=== PATIENT | female | born 1995 | race Caucasian/White ===

== ENCOUNTER 2019-10-17 11:57 | Outpatient (CLI) | payer OTHER, SELFPAY ==
[2019-10-19 20:45] LABS: Progesterone 25.9 ng/mL (***)
== END 2019-10-17 11:58 | disposition home or self-care (01) ==
PROVIDERS: Visit Provider Obstetrics & Gynecology
DX: Z87.59 Personal history of other complications of pregnancy, childbirth and the puerperium (principal)
CPT/HCPCS: 36415; 84144; 84702

== ENCOUNTER 2019-10-19 07:45 | Outpatient (CLI) | payer OTHER, SELFPAY | END 2019-10-19 07:46 | disposition home or self-care (01) | LOC: ANHLAB 07:48 | PROVIDERS: PCP Obstetrics & Gynecology; Visit Provider Obstetrics & Gynecology | DX: Z34.90 Encounter for supervision of normal pregnancy, unspecified, unspecified trimester (principal) | CPT/HCPCS: 36415; 84702 ==

== ENCOUNTER 2019-10-27 15:15 | Outpatient (CLI) | payer OTHER, SELFPAY ==
--- NOTE | ~2019-10-27 | US_ITS ---
EXAMINATION: US OB <= 14 weeks fetus DATE: 10/27/2019 15:56 INDICATION: Positive test. TECHNIQUE: Real-time transabdominal obstetric ultrasound. FINDINGS: No prior studies for comparison. The uterus measures 11.9 x 5.4 x 6.1 cm. There is an intrauterine gestational sac, with pole id entified. The crown rump length measures 0.99 cm, which correlates with a estimated gestational age of 7 weeks 2 days. heart tones are identified measuring 137. IMPRESSION: 1. SL IUP with an EGA of 7 weeks, 2 days (EDC by current ultrasound of 06/12/2020). Reviewed, dictated and finalized at location A. IMPRESSION: 1. SL IUP with an EGA of 7 weeks, 2 days (EDC by current ultrasound of ).
== END 2019-10-27 15:16 | disposition home or self-care (01) ==
PROVIDERS: PCP Internal Medicine; Visit Provider Obstetrics & Gynecology
DX: Z34.91 Encounter for supervision of normal pregnancy, unspecified, first trimester (principal); Z3A.01 Less than 8 weeks gestation of pregnancy
CPT/HCPCS: 76801

== ENCOUNTER 2020-05-27 19:29 | Outpatient (CLI) | payer OTHER, SELFPAY ==
[2020-05-27 20:00] VITALS: BP 136/81
--- NOTE | 2020-05-28 07:26 | PC.NURSE ---
pt arrive on unit c/o leaking of fluid, pt had sve performed in office earlier today
== END 2020-05-27 19:30 | disposition home or self-care (01) ==
LOC: ANHOBOP 20:10
PROVIDERS: PCP Internal Medicine; Visit Provider Obstetrics & Gynecology
DX: O26.851 Spotting complicating pregnancy, first trimester (principal); Z3A.00 Weeks of gestation of pregnancy not specified
CPT/HCPCS: 59025; 84112

== ENCOUNTER 2020-06-03 15:45 | Outpatient (RCR) | payer OTHER, SELFPAY ==
[2020-05-01 12:04] VITALS: BP 132/65; PULSE 95
[2020-05-23 11:05] VITALS: BP 120/60; PULSE 85
[2020-05-30 13:30] VITALS: BP 123/63; PULSE 97
--- NOTE | ~2020-06-03 | US_ITS ---
EXAMINATION: US OB limited w BPP DATE: 05/01/2020 11:30 INDICATION: Third trimester. TECHNIQUE: Real-time pelvic ultrasound was performed. COMPARISON: Ultrasound 10/27/2019 FINDINGS: There is a single living fetus in vertex presentation. The placenta is anterior. heart rate is 148 beats per minute (bpm). One of the kidneys demonstrates mild pelviectasis. The amniotic fluid in dex is 13.4 cm, which is normal. Biophysical profile performed by the technologist: breathing (30 sec sustained breathing in 30 minutes): 2 out of 2 movement (3 gross body movements in 30 minutes): 2 out of 2 tone (one episode of ptmeyum-ascxjmbwo-ajxqset limb movement): 2 out of 2 Amniotic fluid pocket (2 cm): 2 out of 2 Total score: 8 out of 8 IMPRESSION: 1. Single living fetus in vertex presentation. 2. Biophysical profile 8 out of 8. 3. Unilateral mild pelviectasis. kidney ultrasound is recommended. Reviewed, dictated and finalized at location A. SOFTWARE ARCHITECT
--- NOTE | ~2020-06-03 | US_ITS ---
EXAMINATION: US OB limited w BPP EXAM DATE: 05/23/2020 11:33 INDICATION: BPP and JESSEE . 3rd trimester. TECHNIQUE: Pelvic obstetrical transabdominal sonogram was performed by a technologist. There are mu ltiple grayscale and Doppler images available for interpretation. There are no earlier studies of th is gestation for comparison. FINDINGS: There is a single fetus identified in vertex presentation with a heart rate of 141 beats pe r minute. The placenta is located in the anterior position. There is no sonographic evidence of retr oplacental hemorrhage identified. The amniotic fluid index is 13.7 centimeters, which is normal. BIOPHYSICAL PROFILE (performed by the technologist) breathing (30 sec sustained breathing in 30 minutes): 2 out of 2 movement (3 gross body movements in 30 minutes): 2 out of 2 tone (one episode of salpsio-jjoksdmig-nrmyrje limb movement): 2 out of 2 Amniotic fluid pocket (2 cm): 2 out of 2 Total score: 8 out of 8 Incidental note made of mild right and mild to moderate left hydronephrosis. Could be phasic bu t consider ultrasound. IMPRESSION: 1. Single fetus with heart rate of 141 bpm. 2. Normal biophysical profile score of 8 out of 8. 3. Normal JESSEE 13.7 cm. 4. Bilateral hydronephrosis; recommend kidney ultrasound. Reviewed, dictated and finalized at location A. MAPPER
--- NOTE | ~2020-06-03 | US_ITS ---
EXAMINATION: US OB limited w BPP DATE: 05/30/2020 12:28 INDICATION: Assess amniotic fluid index and biophysical profile during third trimester of . TECHNIQUE: Real-time pelvic ultrasound was performed. The interpreting radiologist was not present fo r the study. COMPARISON: None. FINDINGS: There is a single living fetus in vertex presentation. The placenta is anterior fundal. heart rate is 157 beats per minute (bpm). Normal amniotic fluid index of 8.7 cm (5th%-95%: 7.3-23.9 cm at 3 8 weeks estimated gestational age) . Biophysical profile performed by the technologist: breathing (30 sec sustained breathing in 30 minutes): 2 out of 2 movement (3 gross body movements in 30 minutes): 2 out of 2 tone (one episode of kkhcjvm-chmbtusxq-ecrggfk limb movement): 2 out of 2 Amniotic fluid pocket (2 cm): 2 out of 2 Total score: 8 out of 8 IMPRESSION: 1. Single living fetus in vertex presentation with heart rate of 157 bpm. 2. Biophysical profile 8 out of 8. 3. Normal amniotic fluid index of 8.7 cm. Reviewed, dictated and finalized at location A. ER PRODUCTION MACHINE OPERATOR
--- NOTE | ~2020-06-03 | US_ITS ---
EXAMINATION: US OB limited w BPP EXAM DATE: 06/03/2020 17:45 INDICATION: BPP with JESSEE BPP 3rd trimester. TECHNIQUE: Pelvic obstetrical transabdominal sonogram was performed by a technologist. There are mu ltiple grayscale and Doppler images available for interpretation. Comparison is made to prior examina tion from 05/30/2020, 05/23/2020. FINDINGS: There is a single fetus identified in vertex presentation with a heart rate of 166 beats pe r minute. The placenta is located in the anterior position. There is no sonographic evidence of retr oplacental hemorrhage identified. The amniotic fluid index is 13.2 centimeters, which is normal. Incidental note made of right renal pelvis measuring 7.6 mm in AP dimension and the left measuring 7. 2 mm. There is mild left-sided caliectasis. Moderate hydronephrosis. BIOPHYSICAL PROFILE (performed by the technologist) breathing (30 sec sustained breathing in 30 minutes): 0 out of 2 movement (3 gross body movements in 30 minutes): 2 out of 2 tone (one episode of tshumhw-lmbmntnvp-nbsccly limb movement): 2 out of 2 Amniotic fluid pocket (2 cm): 2 out of 2 Total score: 6 out of 8 IMPRESSION: 1. Single fetus with heart rate of 166 bpm. 2. Abnormal BPS 6/8, breathing not observed. 3. Normal JESSEE 13.2 cm. 4. Incidental moderate bilateral hydronephrosis. Consider ultrasound. Reviewed, dictated and finalized at location A. CTOR OF ACQUISITIONS IMPRESSION: 1. Single fetus with heart rate of 166 bpm. 2. Abnormal BPS 6/8, breathing not observed. 3. Normal JESSEE 13.2 cm. 4. Incidental moderate bilateral hydronephrosis. Consider ultr asound.
[2020-06-03 18:10] VITALS: BP 123/75; PULSE 92
== END 2020-06-05 07:46 | disposition home or self-care (01) ==
LOC: ANHOBOP 15:45
PROVIDERS: PCP Internal Medicine; Visit Provider Obstetrics & Gynecology
DX: O26.03 Excessive weight gain in pregnancy, third trimester (principal); O40.3XX0 Polyhydramnios, third trimester, not applicable or unspecified; O28.3 Abnormal ultrasonic finding on antenatal screening of mother; Z3A.34 34 weeks gestation of pregnancy; Z3A.37 37 weeks gestation of pregnancy; Z3A.38 38 weeks gestation of pregnancy
CPT/HCPCS: 59025; 76815; 76819

== ENCOUNTER 2020-06-03 18:05 | Inpatient (IN) | payer OTHER, SELFPAY ==
[2020-06-03] VITALS (22 sets, daily range): BP systolic 90–148; BP diastolic 22–93; PULSE 88–130; TEMP 36.5–36.6; BMI 43.3
--- NOTE | 2020-06-03 18:42 | LDADM ---
This patient, Kaylee Callejas, was admitted to Labor/Delivery/Recovery 104 on 06/03/20 at 18:05. Plans for labor, pain management and were discussed with patient. Patient/family oriented to hospital policies and general routines including ID bracelet, bed and alarms, visiting hours, pain management, procedures, bathroom and other care routines, personal items, smoking policy, room service/diet and guest tray routines, security routines, and visiting hours. Patient/Family are encouraged to report perceived risks to care and to ask questions if they do not understand what they are told or what they should do. See OBIX for further documentation.
[2020-06-03 18:53] LABS: Basophils Percent Auto 0.3 % (0.2-1.2); Eosinophils Absolute Auto 0.1 K/mm3 (0-0.3); Eosinophils Percent Auto 0.9 % (0-4.4); Hematocrit 36.2 % (37.0-47.0); Hemoglobin 11.9 g/dL (12.0-15.0); Immature Granulocyte Absolute 0.07 K/mm3 (0.00-0.031); Immature Granulocyte Percent A 0.6 % (0-0.5); Lymphocytes Absolute Auto 2.89 K/mm3 (0.9-3.2); Lymphocytes Percent Auto 24.4 % (18.3-44.2); Mean Corpuscular HGB Conc 32.9 g/dl (32-36); Mean Corpuscular Hemoglobin 29.4 pg (26-34); Mean Corpuscular Volume 89.4 fl (80-100); Mean Platelet Volume 11.8 fl (7.4-10.4); Monocytes Absolute Auto 0.9 K/mm3 (0.1-0.6); Monocytes Percent Auto 7.8 % (2.6-8.5); Neutrophils Absolute Auto 7.8 K/mm3 (1.3-6.7); Platelet Count Result 247 k/mm3 (150-375); Red Blood Count 4.05 M/mm3 (4.2-5.4); Red Cell Distribution Width 15.4 % (11.5-14.5); White Blood Count 11.9 K/mm3 (4.5-10.0)
[2020-06-03] MEDS: DINOPROSTONE 10 MG VAG INSERT VAGINAL (18:55)
--- NOTE | 2020-06-03 19:34 | WPDANESEPP ---
Anes - Eval Pre Procedure Procedure: Labor epidural Date/Time: 06/03/20 19:34 Surgeon: estelita Preop Diagnosis: Abdominal pain with contractions Pre Op Diagnosis: IOL Patient Data Age: 25 Gender: F Height: 5 ft 2 in Weight: 107.5 kg Last Vital Signs Temp 97.7 F 06/03/20 19:00 Pulse 95 06/03/20 19:31 BP 146/86 H 06/03/20 19:31 Allergies Allergy/AdvReac Type Severity Reaction Status Date / Time Sulfa (Sulfonamide Allergy Unknown Unknown Verified 06/03/20 15:02 Antibiotics) Home Medications Medication Instructions Recorded Confirmed Type vits 75-iron 28 mg-folic pkg PO 10/17/19 05/27/20 History acid 800 mcg-omega-3 oral combo pack cholecalciferol (vitamin D3) 50 mcg PO DAILY 05/17/20 05/27/20 History [Vitamin D3] Laboratory Tests 06/03/20 06/03/20 06/03/20 18:48 18:48 18:48 WBC 11.9 K/mm3 H K/mm3 (4.5-10.0) RBC 4.05 M/mm3 L M/mm3 (4.2-5.4) Hgb 11.9 g/dL L g/dL (12.0-15.0) Hct 36.2 % L % (37.0-47.0) MCV 89.4 fl fl (80-100) MCH 29.4 pg pg (26-34) MCHC 32.9 g/dl g/dl (32-36) RDW 15.4 % H % (11.5-14.5) Plt Count 247 k/mm3 k/mm3 (150-375) MPV 11.8 fl H fl (7.4-10.4) Immature Gran % (Auto) 0.6 % H % (0-0.5) Neut % (Auto) 66.0 % % (45.5-73.1) Lymph % (Auto) 24.4 % % (18.3-44.2) [place] % (Auto) 7.8 % % (2.6-8.5) Eos % (Auto) 0.9 % % (0-4.4) Baso % (Auto) 0.3 % % (0.2-1.2) Lymph # (Auto) 2.89 K/mm3 K/mm3 (0.9-3.2) [place] # (Auto) 0.9 K/mm3 H K/mm3 (0.1-0.6) Eos # (Auto) 0.1 K/mm3 K/mm3 (0-0.3) Baso # (Auto) 0.0 K/mm3 K/mm3 (0.0-0.1) Abs Immat Gran (auto) 0.07 K/mm3 H K/mm3 (0.00-0.031) Absolute Neuts (auto) 7.8 K/mm3 H K/mm3 (1.3-6.7) Absolute Nucleated RBC 0.0 K/mm3 K/mm3 (0.0-0.012) Nucleated RBC % 0.0 % % (0.0-0.2) RPR Pending Blood Type Pending Antibody Screen Pending Patient hx anesthesia problems: none Family hx anesthesia problems: none PMFSH Past Medical History Medical History Obesity affecting in third trimester and not yet delivered Surgical History Surgical History [place] teeth removed Family History Family History Father Diabetes mellitus Cerebrovascular accident Family history of obesity Family history of mental disorder Depression Hypertension Family history of arthritis Family history of congestive heart failure Sibling Family history of mental disorder Depression Hypertension Mother Patient's mother is Other Family history of malignant neoplasm of breast Social History Social History Smoking status: Never smoker Second hand tobacco smoke exposure: No Alcohol intake: current Substance use: never Gender identity (if verbalized by the patient): Female Spiritual care concerns: No Exam Day of Procedure 06/03/20 19:34 Patient weight: overweight Airway: Mallampati scale class 1 Neurological: alert and oriented
[2020-06-04] VITALS (298 sets, daily range): BP systolic 71–154; BP diastolic 31–103; PULSE 65–163; RESP 15–16; TEMP 36.1–37.8; O2SAT 90–100
[2020-06-04] MEDS: fentaNYL CITRATE INJ (*CRX) 100 MCG/2 ML VIAL 50 MCG IV PUSH (00:45)
[2020-06-04] MEDS: fentaNYL CITRATE INJ (*CRX) 100 MCG/2 ML VIAL IV PUSH (01:45)
[2020-06-04] MEDS: LACTATED RINGERS 1,000 ML 125 ML IV CONT ×3 (02:06→05:39)
[2020-06-04] MEDS: TERBUTALINE SULFATE 1 MG/ML VIAL 0.25 MG SUB-Q (04:40)
--- NOTE | 2020-06-04 09:12 | PM.IMHP ---
H&P: HPI History of Present Illness Date/Time: 06/04/20 09:12 Chief Complaint: Nonreassuring tracing. Narrative: Kaylee Callejas is a 25 year old female Patient at 38 5/7 on 06/03/20 by 7 week 2d ultrasound not consistent with LMP. Admitted for [facility] for nonreassuring testing. She had her OB visit and was sent down for testing due to history of polyhydramnios and increased BMI. NST reactive and BPP 6/8 for breathing. She had some variables initially and then after returning from ultrasound had increased frequency of mild variables. She was recommended for induction. PNC significant for pyelectasis. She had polyhydramnios mild which did resolve. She was measuring size larger than dates but ultrasound showed normal EFW. Labs reviewed. She had one hour GTT 141 and three hour was normal. GBS neg. Review of Systems Review of Systems: All systems reviewed & are unremarkable except as noted in HPI and below Constitutional: Constitutional: Reports no additional constitutional complaints and Denies headache(s) Eyes: Eyes: Denies spots in vision ENT: Reports system reviewed and no additional complaints, except as documented and Denies headache(s) Cardiovascular: Cardiovascular: Denies chest pain and Denies dyspnea Respiratory: Respiratory: Denies dyspnea Gastrointestinal: Gastrointestinal: Reports no additional gastrointestinal complaints Genitourinary: Genitourinary: Reports amenorrhea Musculoskeletal: Musculoskeletal: Reports no additional musculoskeletal complaints Integumentary/Breasts: Skin/Breast: Denies breast mass and Denies rash Neurologic: Denies headache(s) Psychiatric: Psychiatric: Reports no additional psychiatric complaints COUNTS INCLUDE 234 BEDS AT THE [facility] Past Medical History Medical History Obesity affecting in third trimester and not yet delivered Surgical History Surgical History [place] teeth removed Family History Family History Father Diabetes mellitus Cerebrovascular accident Family history of obesity Family history of mental disorder Depression Hypertension Family history of arthritis Family history of congestive heart failure Sibling Family history of mental disorder Depression Hypertension Mother Patient's mother is Other Family history of malignant neoplasm of breast Social History Social History Smoking status: Never smoker Second hand tobacco smoke exposure: No Alcohol intake: current Substance use: never Gender identity (if verbalized by the patient): Female Spiritual care concerns: No Meds Home Medications and Allergies Home Medications Medication Instructions Recorded Confirmed Type vits 75-iron 28 mg-folic pkg PO 10/17/19 05/27/20 History acid 800 mcg-omega-3 oral combo pack cholecalciferol (vitamin D3) 50 mcg PO DAILY 05/17/20 05/27/20 History [Vitamin D3] Allergies Allergy/AdvReac Type Severity Reaction Status Date / Time Sulfa (Sulfonamide Allergy Unknown Unknown Verified 06/03/20 15:02 Antibiotics) Vital Signs Vital Signs - 24 hr 06/03/20 18:32 06/03/20 18:46 06/03/20 19:00 Temperature 97.7 F Pulse Rate 97 91 Blood Pressure 134/93 H 134/77 Pulse Oximetry 06/03/20 19:01 06/03/20 19:16 06/03/20 19:31 Temperature Pulse Rate 95 95 95 Blood Pressure 138/85 145/86 H 146/86 H Pulse Oximetry 06/03/20 19:46 06/03/20 20:01 06/03/20 20:16 Temperature Pulse Rate 89 90 88 Blood Pressure 148/85 H 144/81 H 140/68 Pulse Oximetry 06/03/20 20:31 06/03/20 20:46 06/03/20 21:11 Temperature Pulse Rate 93 99 101 H Blood Pressure 129/75 129/73 118/66 Pulse Oximetry 06/03/20 21:15 06/03/20 21:31 06/03/20 21:46 [place]
[2020-06-04] MEDS: DEXTROSE 5%/LACTATED RINGERS 1,000 ML 999 ML IV CONT (09:24)
[2020-06-04] MEDS: OXYTOCIN 30 UNITS/NS 500 ML 30 UNITS/500 ML BAG IV CONT (10:20)
--- NOTE | 2020-06-04 12:48 | PM.OBPNVD ---
OB - PN: Subj Subjective Date/time seen: 06/04/20 Called at 0220, patient with frequent contractions, request epidural. FHT 155, occasional variables, episodes of tachycardia. OB - PN: Obj Data Labs CBC & Chem 7: 06/03/20 18:48 Labs: Laboratory Results - last 24 hr 06/03/20 06/03/20 18:48 18:48 WBC 11.9 H RBC 4.05 L Hgb 11.9 L Hct 36.2 L MCV 89.4 MCH 29.4 MCHC 32.9 RDW 15.4 H Plt Count 247 MPV 11.8 H Immature Gran % (Auto) 0.6 H Neut % (Auto) 66.0 Lymph % (Auto) 24.4 [place] % (Auto) 7.8 Eos % (Auto) 0.9 Baso % (Auto) 0.3 Lymph # (Auto) 2.89 [place] # (Auto) 0.9 H Eos # (Auto) 0.1 Baso # (Auto) 0.0 Abs Immat Gran (auto) 0.07 H Absolute Neuts (auto) 7.8 H Absolute Nucleated RBC 0.0 Nucleated RBC % 0.0 Blood Type A Positive Antibody Screen Negative OB - PN A/P Time Spent With Patient Time: Total time spent is greater than 50% in coordination of care (as documented) at patient's floor/unit and/or counseling patient:
--- NOTE | 2020-06-04 12:56 | P.PNOB_ITS ---
OB - PN: Subj Subjective Date/time seen: 06/04/20 0420' Called due to tachysystole. The cervidil had been removed. Tracing with episode of lates with tachystole and and deceleration associated with episodic tachyst ole, tracing then with decreased variabilty and late decels. She was instructed to give terbutaline. Tracing improved. Cat 2. FHT 155 baseline.Tachysystole resolved, ctn frequent. Will continue to monitor. OB - PN: Obj Data Labs CBC & Chem 7: 06/03/20 18:48 Labs: Laboratory Results - last 24 hr 06/03/20 06/03/20 18:48 18:48 WBC 11.9 H RBC 4.05 L Hgb 11.9 L Hct 36.2 L MCV 89.4 MCH 29.4 MCHC 32.9 RDW 15.4 H Plt Count 247 MPV 11.8 H Immature Gran % (Auto) 0.6 H Neut % (Auto) 66.0 Lymph % (Auto) 24.4 [place] % (Auto) 7.8 Eos % (Auto) 0.9 Baso % (Auto) 0.3 Lymph # (Auto) 2.89 [place] # (Auto) 0.9 H Eos # (Auto) 0.1 Baso # (Auto) 0.0 Abs Immat Gran (auto) 0.07 H Absolute Neuts (auto) 7.8 H Absolute Nucleated RBC 0.0 Nucleated RBC % 0.0 Blood Type A Positive Antibody Screen Negative OB - PN A/P Time Spent With Patient Time: Total time spent is greater than 50% in coordination of care (as documented) at patient's floor/unit and/or counseling patient:
--- NOTE | 2020-06-04 13:05 | PM.OBPNVD ---
OB - PN: Subj Subjective Date/time seen: 06/04/20 0500 Called to check on patient. Tracing reviewed cat 1, baseline normal. Plan to AROM in a few hours. OB - PN: Obj Data Labs CBC & Chem 7: 06/03/20 18:48 Labs: Laboratory Results - last 24 hr 06/03/20 06/03/20 18:48 18:48 WBC 11.9 H RBC 4.05 L Hgb 11.9 L Hct 36.2 L MCV 89.4 MCH 29.4 MCHC 32.9 RDW 15.4 H Plt Count 247 MPV 11.8 H Immature Gran % (Auto) 0.6 H Neut % (Auto) 66.0 Lymph % (Auto) 24.4 [place] % (Auto) 7.8 Eos % (Auto) 0.9 Baso % (Auto) 0.3 Lymph # (Auto) 2.89 [place] # (Auto) 0.9 H Eos # (Auto) 0.1 Baso # (Auto) 0.0 Abs Immat Gran (auto) 0.07 H Absolute Neuts (auto) 7.8 H Absolute Nucleated RBC 0.0 Nucleated RBC % 0.0 Blood Type A Positive Antibody Screen Negative OB - PN A/P Time Spent With Patient Time: Total time spent is greater than 50% in coordination of care (as documented) at patient's floor/unit and/or counseling patient:
--- NOTE | 2020-06-04 13:09 | P.PNOB_ITS ---
OB - PN: Subj Subjective Date/time seen: 06/04/20 0815 Tracing reviewed, freq ctx, Cat 1 5-7, then Cat 2 with periods of decrease variability, no decels. Cervix 5-6/50/-3 AROM large amount fluid. Will have change IVF to D5. Will add Pitocin if needed. OB - PN: Obj Data Labs CBC & Chem 7: 06/03/20 18:48 Labs: Laboratory Results - last 24 hr 06/03/20 06/03/20 18:48 18:48 WBC 11.9 H RBC 4.05 L Hgb 11.9 L Hct 36.2 L MCV 89.4 MCH 29.4 MCHC 32.9 RDW 15.4 H Plt Count 247 MPV 11.8 H Immature Gran % (Auto) 0.6 H Neut % (Auto) 66.0 Lymph % (Auto) 24.4 [place] % (Auto) 7.8 Eos % (Auto) 0.9 Baso % (Auto) 0.3 Lymph # (Auto) 2.89 [place] # (Auto) 0.9 H Eos # (Auto) 0.1 Baso # (Auto) 0.0 Abs Immat Gran (auto) 0.07 H Absolute Neuts (auto) 7.8 H Absolute Nucleated RBC 0.0 Nucleated RBC % 0.0 Blood Type A Positive Antibody Screen Negative OB - PN A/P Time Spent With Patient Time: Total time spent is greater than 50% in coordination of care (as do cumented) at patient's floor/unit and/or counseling patient:
--- NOTE | 2020-06-04 15:33 | P.PNOB_ITS ---
OB - PN: Subj Subjective Date/time seen: 06/04/20 15:33 FHT 160, cat 2, periods of decrease variability, contraction inadequate, continue pitocin. Temp 100.1. Cervix exam changing based L and D nurse exam. OB - PN: Obj Data Labs CBC & Chem 7: 06/03/20 18:48 Labs: Laboratory Results - last 24 hr 06/03/20 06/03/20 18:48 18:48 WBC 11.9 H RBC 4.05 L Hgb 11.9 L Hct 36.2 L MCV 89.4 MCH 29.4 MCHC 32.9 RDW 15.4 H Plt Count 247 MPV 11.8 H Immature Gran % (Auto) 0.6 H Neut % (Auto) 66.0 Lymph % (Auto) 24.4 [place] % (Auto) 7.8 Eos % (Auto) 0.9 Baso % (Auto) 0.3 Lymph # (Auto) 2.89 [place] # (Auto) 0.9 H Eos # (Auto) 0.1 Baso # (Auto) 0.0 Abs Immat Gran (auto) 0.07 H Absolute Neuts (auto) 7.8 H Absolute Nucleated RBC 0.0 Nucleated RBC % 0.0 Blood Type A Positive Antibody Screen Negative OB - PN A/P Time Spent With Patient Time: Total time spent is greater than 50% in coordination of care (as documented) at patient's floor/unit and/or counseling patient:
[2020-06-04] MEDS: DEXTROSE 5%/LACTATED RINGERS 1,000 ML 125 ML IV CONT (15:35)
--- NOTE | 2020-06-04 15:55 | PM.OBPNVD ---
OB - PN: Subj Subjective Date/time seen: 06/04/20 15:55 FHT 170, min variability, cervix 6/90/-3. caput present. Cat 2. t- 100.1 Patient was informed that she has not had any descent. Discussed risk of persisting with attempting vaginal delivery and discussed risk of cesearean section. Her questions were answered, she agrees to primary cesearean section for failure to progress and nonreassuring tracing. OB - PN: Obj Data Labs CBC & Chem 7: 06/03/20 18:48 Labs: Laboratory Results - last 24 hr 06/03/20 06/03/20 18:48 18:48 WBC 11.9 H RBC 4.05 L Hgb 11.9 L Hct 36.2 L MCV 89.4 MCH 29.4 MCHC 32.9 RDW 15.4 H Plt Count 247 MPV 11.8 H Immature Gran % (Auto) 0.6 H Neut % (Auto) 66.0 Lymph % (Auto) 24.4 [place] % (Auto) 7.8 Eos % (Auto) 0.9 Baso % (Auto) 0.3 Lymph # (Auto) 2.89 [place] # (Auto) 0.9 H Eos # (Auto) 0.1 Baso # (Auto) 0.0 Abs Immat Gran (auto) 0.07 H Absolute Neuts (auto) 7.8 H Absolute Nucleated RBC 0.0 Nucleated RBC % 0.0 Blood Type A Positive Antibody Screen Negative OB - PN A/P Time Spent With Patient Time: Total time spent is greater than 50% in coordination of care (as documented) at patient's floor/unit and/or counseling patient:
--- NOTE | 2020-06-04 16:01 | WPDANESEFPP ---
Anes - Eval Final PreProcedure Day of Procedure 06/04/20 16:01 Patient weight: morbidly obese Heart: regular rate and rhythm Lungs: clear to auscultation and normal air movement Airway: Mallampati scale class III Neurological: alert and oriented Last oral intake: >/= 8 hours ASA classification: III Emergent: no Anesthetic plan: proceed Anesthesia type and monitoring: regional epidural and standard monitoring Informed Consent: The patient's anesthetic plan and its attendant risks and benefits were discussed with the patient/family/POA. Questions were solicited and answers provided to the satisfaction of the patient/family/POA.
[2020-06-04] MEDS: ceFAZolin 2 GM/D5W 50 ML 2 GM/50 ML BAG IVPB (16:10)
--- NOTE | 2020-06-04 17:30 | PM.PROC ---
Procedure Note - Detailed Date of procedure: 06/04/20 Pre-op diagnosis: IOL 1. Failure to descend Post-op diagnosis: same Procedure performed: Primary low transverse cesearean section Description of procedure: After informed consent was obtained patient was taken to the operating room and her epidural was dosed for adequate analgesia. She was placed in supine position and prepped and draped in sterile fashion. heart tones were auscultated prior to a draping and were 160s. Attention was turned to the abdomen and a Pfannenstiel skin incision was made. The subcutaneous tissue was dissected with scalpel. The fascia was incised in the midline extended bilaterally with Childress scissors. The fascia was from rectus muscle superiorly and inferiorly bluntly and sharply. The midline was identified and grasped with clamps and incised. The peritoneum was entered. the midline was entered with metzenbaum scissors. The pelvic organs were visualized. The lower uterine segment and vesico-uterine peritoneum was visualized. A bladder flap was made. A low-transverse uterine incision was made. The amniotic cavity was entered. A large amount of clear fluid was noted. The incision was extended bluntly and the head and the rest the was delivered. The cord was doubly clamped and cut and the infant was handed to nursery staff and meteorological engineer in attendance. Cord segment was obtained for cord gases. Cord blood was obtained. The placenta was removed manually. The uterine cavity was sponge curetted. The uterus was noted to have good tone. The uterus was exteriorized the incision of the uterus was closed in a running locking fashion with 0 Vicryl. Several figure of eight stitches were used along the incision. Hemostasis was noted. An umbricating stitch of 0 Vicryl. Hemostasis was noted. The posterior cul-de-sac was irrigated. Uterus was placed back into the abdomen. The paracolic gutters were irrigated the uterine incision was inspected again and noted to be hemostatic. Interceed adhesion barrier was placed at the lower uterine segment and anterior uterus. The fascia was closed in a running fashion with 0 Vicryl. Hemostasis was noted. 3.0 Vicryl stitch was used interrupted to approximate the subcutaneous tissue. The skin incision was closed with 4 O Vicryl on a Keif needle. Dermabond was placed. Hemostasis was noted. The QBL was 690cc. Sponge count was correct x3. The patient tolerated procedure well and was taken to recovery in stable condition. Anesthesia: epidural Surgeon: Dickson Doll MD Estimated blood loss (mL): 690 Drains: No Packing: No Pathology: none sent Complications: No immediate complications Condition: stable Disposition: PACU Findings: Male infant apgars 3,8. Normal uterus, fallopian tubes and ovaries.
[2020-06-04] MEDS: KETOROLAC 30 MG/ML VIAL (*BKC) IV PUSH (19:00)
[2020-06-05] MEDS: KETOROLAC 30 MG/ML VIAL (*BKC) IV PUSH (00:35)
[2020-06-05 04:10] VITALS: BP 115/78; PULSE 81; RESP 16; TEMP 36.1; O2SAT 99
[2020-06-05 04:27] VITALS: PULSE 81; RESP 16; O2SAT 99
[2020-06-05] MEDS: IBUPROFEN 600 MG TABLET PO ×3 (05:22→18:36)
[2020-06-05] MEDS: HYDROcodone/acetaminophen (*CRX) 10-325 MG TABLET 1 TAB PO ×4 (05:22→15:24)
[2020-06-05 05:53] LABS: Basophils Absolute Auto 0.1 K/mm3 (0.0-0.1); Basophils Percent Auto 0.3 % (0.2-1.2); Eosinophils Absolute Auto 0.1 K/mm3 (0-0.3); Eosinophils Percent Auto 0.3 % (0-4.4); Hematocrit 30.2 % (37.0-47.0); Hemoglobin 9.8 g/dL (12.0-15.0); Immature Granulocyte Absolute 0.09 K/mm3 (0.00-0.031); Immature Granulocyte Percent A 0.6 % (0-0.5); Lymphocytes Absolute Auto 1.91 K/mm3 (0.9-3.2); Lymphocytes Percent Auto 12.6 % (18.3-44.2); Mean Corpuscular HGB Conc 32.5 g/dl (32-36); Mean Corpuscular Hemoglobin 29.6 pg (26-34); Mean Corpuscular Volume 91.2 fl (80-100); Mean Platelet Volume 12.8 fl (7.4-10.4); Monocytes Absolute Auto 0.8 K/mm3 (0.1-0.6); Monocytes Percent Auto 5.2 % (2.6-8.5); Neutrophils Absolute Auto 12.3 K/mm3 (1.3-6.7); Platelet Count Result 168 k/mm3 (150-375); Red Blood Count 3.31 M/mm3 (4.2-5.4); Red Cell Distribution Width 15.7 % (11.5-14.5); White Blood Count 15.2 K/mm3 (4.5-10.0)
[2020-06-05 07:04] LABS: Rapid Plasma Reagin Non-Reactive (NonReactive)
--- NOTE | 2020-06-05 07:35 | WPDANLDPN2 ---
Anes-Prog Note L&D Date/Time: 06/05/20 07:35 Comfortable throughout: section Neuraxial method: epidural Epidural/Spinal procedure site: clean & non-tender Neuro status: Neuro function grossly intact. Cardiovascular status: normal Respiratory status: normal Airway patency: baseline Mental status: baseline Post-Op hydration status: normal Vital Signs: Last Vital Signs Temp 36.1 C L 06/05/20 04:10 Pulse 81 06/05/20 04:27 Resp 16 06/05/20 04:27 BP 115/78 06/05/20 04:10 Pulse Ox 99 06/05/20 04:27 Pain score (VAS): 3/10 I/O: Intake & Output 06/04/20 06/04/20 06/05/20 15:59 23:59 07:59 Intake Total 1000 1230 1000 Output Total 1608 1800 Balance 1000 -378 -800 Post-procedural complaints: none Patient feedback: Patient satisfied with anesthetic care.
--- NOTE | 2020-06-05 07:37 | WPDANLDNPN2 ---
Anes-Prog Note L&D-Neuraxial Date/Time: 06/05/20 07:37 Neuraxial medications: epidural PF morphine Opiod-related complaints: none Patient feedback: Patient satisfied with post-operative pain management.
[2020-06-05 07:50] VITALS: BP 130/86; PULSE 91; RESP 18; TEMP 36.9; O2SAT 97
[2020-06-05] MEDS: POLYSACCHARIDE IRON COMPLEX 150 MG CAPSULE PO ×2 (09:02→17:42)
[2020-06-05] MEDS: DOCUSATE SODIUM 100 MG CAPSULE PO ×2 (09:02→17:42)
--- NOTE | 2020-06-05 11:43 | PC.NURSE ---
Mother using breast pump while is in level 2 nursery care. Instructions given on breast pump care and usage, pumping schedule, nipple care, and collection and storage of breast milk. Encouraged [id number] when is able, breast massage and manual expression to stimulate supply. Encouraged mom to pump every 3 hours to encourage her supply. Patient will call next pump sessionto be assessed for correct flange size, placement and draw. Patient verbalizes and demonstrates understanding of instructions.
[2020-06-05] MEDS: HYDROcodone/acetaminophen (*CRX) 10-325 MG TABLET 1 TAB (12:12)
[2020-06-05 13:35] VITALS: BP 140/85; PULSE 105; RESP 18; TEMP 36.7; O2SAT 97
[2020-06-05] MEDS: HYDROcodone/acetaminophen (*CRX) 5-325 MG TABLET 1 TAB PO ×2 (18:35→21:10)
[2020-06-05 18:41] VITALS: BP 143/80; PULSE 103; RESP 18; TEMP 36.7; O2SAT 100
[2020-06-06] MEDS: IBUPROFEN 600 MG TABLET PO ×3 (00:05→16:43)
[2020-06-06] MEDS: HYDROcodone/acetaminophen (*CRX) 5-325 MG TABLET 1 TAB PO ×5 (00:05→16:42)
[2020-06-06] MEDS: DOCUSATE SODIUM 100 MG CAPSULE PO ×2 (08:18→16:41)
[2020-06-06] MEDS: MULTIVIT/MIN/PREN/FOL AC/IRON TABLET 1 TAB PO (08:18)
[2020-06-06] MEDS: POLYSACCHARIDE IRON COMPLEX 150 MG CAPSULE PO ×2 (08:19→16:42)
[2020-06-06 08:20] VITALS: BP 138/92; PULSE 91; RESP 18; TEMP 36.9; O2SAT 100
[2020-06-06 08:30] VITALS: PULSE 96; RESP 18; O2SAT 100
[2020-06-06 10:00] LABS: Basophils Percent Auto 0.3 % (0.2-1.2); Eosinophils Absolute Auto 0.1 K/mm3 (0-0.3); Eosinophils Percent Auto 0.7 % (0-4.4); Hematocrit 27.3 % (37.0-47.0); Hemoglobin 8.8 g/dL (12.0-15.0); Immature Granulocyte Absolute 0.16 K/mm3 (0.00-0.031); Lymphocytes Absolute Auto 2.11 K/mm3 (0.9-3.2); Lymphocytes Percent Auto 13.3 % (18.3-44.2); Mean Corpuscular HGB Conc 32.2 g/dl (32-36); Mean Corpuscular Hemoglobin 29.1 pg (26-34); Mean Corpuscular Volume 90.4 fl (80-100); Mean Platelet Volume 11.4 fl (7.4-10.4); Neutrophils Absolute Auto 12.5 K/mm3 (1.3-6.7); Neutrophils Percent Auto 78.7 % (45.5-73.1); Platelet Count Result 203 k/mm3 (150-375); Red Blood Count 3.02 M/mm3 (4.2-5.4); Red Cell Distribution Width 16.1 % (11.5-14.5); White Blood Count 15.9 K/mm3 (4.5-10.0)
[2020-06-06 10:10] LABS: Alanine Aminotransferase 8 U/L (4-35); Albumin Level 2.8 g/dL (3.5-5.1); Alkaline Phosphatase 76 U/L (38-126); Anion Gap 2 mmol/L (8-16); Aspartate Amino Transferase 28 U/L (14-36); Bilirubin,Total 0.5 mg/dL (0.2-1.3); Blood Urea Nitrogen 14 mg/dL (7-17); Calcium 8.9 mg/dL (8.4-10.2); Carbon Dioxide 28 mmol/L (22-30); Chloride 106 mmol/L (98-107); Estimated CRCL calculation 106 ml/min; Estimated Glomerular Filt Rate > 60; Glucose 88 mg/dL (65-105); Potassium 4.4 mmol/L (3.4-5.0); Sodium 136 mmol/L (137-145); Uric Acid 4.6 mg/dL (2.5-7.5)
[2020-06-06 11:50] VITALS: BP 146/92; PULSE 96; RESP 18; TEMP 36.9; O2SAT 100
--- NOTE | 2020-06-06 12:01 | PC.NURSE ---
Consulted with patient, reviewed feeding cues, frequencies, duration of feedings, feeding elimination flow sheet, and signs of adequate intake. Demonstrated stimulation techniques to wake for feeding. Assisted with to breast. Reviewed positioning/alignment, holding breast and asymmetrical latch on. was able to latch correctly. Infant nursed eagerly, with steady draws and frequent swallowing noted. Reviewed signs of a correct latch, effective nursing and suck swallow ratio. was able to maintain latch without discomfort to mother. Nipple care reviewed. Instructed mother to call out for RN assistance if she is unable to latch for feeding or she has discomfort with nursing. Instructed feeding should be initiated three hours from start of last feeding or if feeding cues are noted before. Mother voiced understanding of information shared.
[2020-06-06] MEDS: NIFEdipine 30 MG TAB.ER.24 PO (12:39)
--- NOTE | 2020-06-06 12:39 | P.PNOB_ITS ---
OB - PN: Subj Subjective Date/time seen: 06/05/20 1020 I talked to patient in the nursery. She stated adequate pain control. She ambulated to restroom in room. She tolerated regular diet. She denies flatus. OB - PN: Obj Data Labs CBC & Chem 7: 06/06/20 09:47 06/06/20 09:47 Labs: Laboratory Results - last 24 hr 06/06/20 06/06/20 09:47 09:47 WBC 15.9 H RBC 3.02 L Hgb 8.8 L Hct 27.3 L MCV 90.4 MCH 29.1 MCHC 32.2 RDW 16.1 H Plt Count 203 MPV 11.4 H Immature Gran % (Auto) 1.0 H Neut % (Auto) 78.7 H Lymph % (Auto) 13.3 L [place] % (Auto) 6.0 Eos % (Auto) 0.7 Baso % (Auto) 0.3 Lymph # (Auto) 2.11 [place] # (Auto) 1.0 H Eos # (Auto) 0.1 Baso # (Auto) 0.0 Abs Immat Gran (auto) 0.16 H Absolute Neuts (auto) 12.5 H Absolute Nucleated RBC 0.0 Nucleated RBC % 0.0 Sodium 136 L Potassium 4.4 Chloride 106 Carbon Dioxide 28 Anion Gap 2 L BUN 14 Creatinine 0.80 Estim Creat Clear Calc 106 Estimated GFR > 60 Glucose 88 Uric Acid 4.6 Calcium 8.9 Total Bilirubin 0.5 AST 28 ALT 8 Alkaline Phosphatase 76 Total Protein 6.0 L Albumin 2.8 L OB - PN A/P Assessment and Plan (1) Status post section: Code(s): Z98.891 - History of uterine scar from previous surgery Status: Acute Assessment and Plan: 1. POD1 s/p primary cesearean section for failure to progress. 2. She is doing well. 3. Routine post op care. Time Spent With Patient Time: Total time spent is greater than 50% in coordination of care (as documented) at patient's floor/unit and/or counseling patient:
--- NOTE | 2020-06-06 12:44 | P.PNOB_ITS ---
OB - PN: Subj Subjective Date/time seen: 06/06/20 12:44 She has ambulated in room. She has flatus. Has adequate pain control with oral medication. Tolerating regular diet. No headache, scotomata or RUQ pain. OB - PN: Obj Data Labs CBC & Chem 7: 06/06/20 09:47 06/06/20 09:47 Labs: Laboratory Results - last 24 hr 06/06/20 06/06/20 09:47 09:47 WBC 15.9 H RBC 3.02 L Hgb 8.8 L Hct 27.3 L MCV 90.4 MCH 29.1 MCHC 32.2 RDW 16.1 H Plt Count 203 MPV 11.4 H Immature Gran % (Auto) 1.0 H Neut % (Auto) 78.7 H Lymph % (Auto) 13.3 L [place] % (Auto) 6.0 Eos % (Auto) 0.7 Baso % (Auto) 0.3 Lymph # (Auto) 2.11 [place] # (Auto) 1.0 H Eos # (Auto) 0.1 Baso # (Auto) 0.0 Abs Immat Gran (auto) 0.16 H Absolute Neuts (auto) 12.5 H Absolute Nucleated RBC 0.0 Nucleated RBC % 0.0 Sodium 136 L Potassium 4.4 Chloride 106 Carbon Dioxide 28 Anion Gap 2 L BUN 14 Creatinine 0.80 Estim Creat Clear Calc 106 Estimated GFR > 60 Glucose 88 Uric Acid 4.6 Calcium 8.9 Total Bilirubin 0.5 AST 28 ALT 8 Alkaline Phosphatase 76 Total Protein 6.0 L Albumin 2.8 L OB - PN A/P Assessment and Plan (1) Status post section: Code(s): Z98.891 - History of uterine scar from previous surgery Status: Acute Assessment and Plan: Post operatively she is doing well. Encouraged ambulation in the halls. (2) hypertension: Code(s): O16.5 - Unspecified maternal hypertension, complicating the puerperium Status: Acute Assessment and Plan: No symptoms of pre-eclampsia. Will check pre- e labs. Will start antihypertensive if labs do not indicate pre-eclampsia. Time Spent With Patient Time: Total time spent is greater than 50% in coordination of care (as documented) at patient's floor/unit and/or counseling patient: Exam Const: General: comfortable and no acute distress Resp: Effort & Inspection: normal respiratory effort Auscultation: clear to auscultation bilaterally Cardio: Rate: regular rate GI: Other: fundus -1 umb, appropriate tender, incision intact no drainage, no warmth Neuro: Other: DTR 3+ neg clonus Extrem: Other: 1+ edema bilat, neg Homans bilaterally Psych: Mental Status: mental status grossly normal Affect: normal affect
[2020-06-06 16:37] VITALS: BP 142/95; PULSE 100
[2020-06-06 20:00] VITALS: BP 146/94; PULSE 101; RESP 18; TEMP 36.8; O2SAT 99
[2020-06-07] VITALS (8 sets, daily range): BP systolic 134–157; BP diastolic 76–99; PULSE 84–102; RESP 16–18; TEMP 36.5–37.2; O2SAT 98–99
[2020-06-07] MEDS: HYDROcodone/acetaminophen (*CRX) 5-325 MG TABLET 1 TAB PO ×6 (00:55→23:00)
[2020-06-07] MEDS: IBUPROFEN 600 MG TABLET PO ×4 (00:55→23:00)
[2020-06-07] MEDS: BISACODYL 10 MG SUPPOSITORY RECTAL ×2 (01:00→23:01)
--- NOTE | 2020-06-07 09:01 | PM.OBPNVD ---
OB - PN: Subj Subjective Date/time seen: 06/07/20 09:01 She has adequate pain control. Tolerating regular diet. Positive bowel movement. Ambulating without problems. No leg pain. No headache, scotomata or RUQ pain. OB - PN: Obj Data Labs CBC & Chem 7: 06/06/20 09:47 06/06/20 09:47 Labs: Laboratory Results - last 24 hr 06/06/20 06/06/20 09:47 09:47 WBC 15.9 H RBC 3.02 L Hgb 8.8 L Hct 27.3 L MCV 90.4 MCH 29.1 MCHC 32.2 RDW 16.1 H Plt Count 203 MPV 11.4 H Immature Gran % (Auto) 1.0 H Neut % (Auto) 78.7 H Lymph % (Auto) 13.3 L [place] % (Auto) 6.0 Eos % (Auto) 0.7 Baso % (Auto) 0.3 Lymph # (Auto) 2.11 [place] # (Auto) 1.0 H Eos # (Auto) 0.1 Baso # (Auto) 0.0 Abs Immat Gran (auto) 0.16 H Absolute Neuts (auto) 12.5 H Absolute Nucleated RBC 0.0 Nucleated RBC % 0.0 Sodium 136 L Potassium 4.4 Chloride 106 Carbon Dioxide 28 Anion Gap 2 L BUN 14 Creatinine 0.80 Estim Creat Clear Calc 106 Estimated GFR > 60 Glucose 88 Uric Acid 4.6 Calcium 8.9 Total Bilirubin 0.5 AST 28 ALT 8 Alkaline Phosphatase 76 Total Protein 6.0 L Albumin 2.8 L OB - PN A/P Assessment and Plan (1) hypertension: Code(s): O16.5 - Unspecified maternal hypertension, complicating the puerperium Status: Acute Assessment and Plan: Blood pressures elevated, improved this morning. Will continue Procardia. She does not have any pre-eclamptic symptoms. Will give HCTZ for five days to help with the swelling.. (2) Encounter for postoperative care: Code(s): Z48.89 - Encounter for other specified surgical aftercare Status: Acute Assessment and Plan: Continue care. Continue to monitor blood pressures. Time Spent With Patient Time: Total time spent is greater than 50% in coordination of care (as documented) at patient's floor/unit and/or counseling patient: Exam Const: General: comfortable and no acute distress Resp: Effort & Inspection: normal respiratory effort GI: Other: Abdomen fundus -2umb firm nontender, Incision intact no drainage or erythema Extrem: Other: nontender, 2-3+ edema bilat lower ext, upper ext 1-2+ bilat Psych: Mental Status: mental status grossly normal Affect: normal affect
[2020-06-07] MEDS: NIFEdipine 30 MG TAB.ER.24 PO (09:16)
[2020-06-07] MEDS: POLYSACCHARIDE IRON COMPLEX 150 MG CAPSULE PO ×2 (09:16→16:41)
[2020-06-07] MEDS: DOCUSATE SODIUM 100 MG CAPSULE PO ×2 (09:16→16:41)
[2020-06-07] MEDS: hydroCHLOROthiazide 25 MG TABLET PO (13:56)
[2020-06-08] VITALS: BP 128/81; PULSE 97; RESP 16; TEMP 36.8; O2SAT 98
[2020-06-08] MEDS: HYDROcodone/acetaminophen (*CRX) 5-325 MG TABLET 1 TAB PO ×2 (03:47→10:04)
[2020-06-08 04:00] VITALS: BP 126/78; PULSE 95; RESP 16; TEMP 36.5; O2SAT 98
[2020-06-08 08:25] VITALS: BP 127/80; PULSE 90; RESP 18; TEMP 36.2
[2020-06-08] MEDS: DOCUSATE SODIUM 100 MG CAPSULE PO (09:08)
[2020-06-08] MEDS: MULTIVIT/MIN/PREN/FOL AC/IRON TABLET 1 TAB PO (09:08)
[2020-06-08] MEDS: hydroCHLOROthiazide 25 MG TABLET PO (09:09)
[2020-06-08] MEDS: NIFEdipine 30 MG TAB.ER.24 PO (09:09)
[2020-06-08] MEDS: POLYSACCHARIDE IRON COMPLEX 150 MG CAPSULE PO (09:09)
--- NOTE | 2020-06-08 09:45 | PM.OBPNVD ---
OB - PN: Subj Subjective Date/time seen: 06/08/20 09:45 She states adequate pain control with medication. She is ambulating. No leg pain. No headache, scotomata or RUQ pain. Mild lochia. well. OB - PN: Obj Data Labs CBC & Chem 7: 06/06/20 09:47 06/06/20 09:47 OB - PN A/P Assessment and Plan (1) Encounter for postoperative care: Code(s): Z48.89 - Encounter for other specified surgical aftercare Status: Acute Assessment and Plan: She is doing well postoperatively. Will discharge home. Discussed discharge precautions. (2) hypertension: Code(s): O16.5 - Unspecified maternal hypertension, complicating the puerperium Status: Acute Assessment and Plan: Blood pressures normal on medication. No gestational hypertension symptoms. Will discharge home on medication. Follow up in office on Wed or . Call for the appointment. Time Spent With Patient Time: Total time spent is greater than 50% in coordination of care (as documented) at patient's floor/unit and/or counseling patient: Exam Const: General: comfortable and no acute distress Resp: Effort & Inspection: normal respiratory effort GI: Other: uterus, -2 umb, firm nontender, no warmth incision no erythema, no drainage or induration Extrem: Other: 2+ LE edema bilat, neg fernando's bilateral, hands tr edema Psych: Mental Status: mental status grossly normal Affect: normal affect
--- NOTE | 2020-06-08 09:49 | PM.DS ---
DS: Admitting Diagnosis Admitting Diagnosis Admitting Diagnosis: Nonreassuring tracing. Medical induction of labor. DS: Discharge Diagnosis Discharge Diagnosis (1) Failure to progress in labor: Code(s): O62.2 - Other uterine inertia Status: Acute (2) hypertension: Code(s): O16.5 - Unspecified maternal hypertension, complicating the puerperium Status: Acute (3) Postoperative anemia: Code(s): D64.9 - Anemia, unspecified Status: Acute Assessment and Plan: Asymptomatic. Iron supplementation. DS: Summary Hospital Course Hospital Course: Patient admitted for medical induction of labor with cervidil due to concerning tracing. She progressed into labor with the cervidil. The cervidil was subsequently removed. She was started on Pitocin. She progressed to six cm dilated and did not descend pass -3. Tracing was intermittently Cat 2. She was recommended for cesearean section for failure to progress. She underwent an uncomplicated primary cesearean section. Post operative day one she did well. Had asymptomatic post operative anemia. She started having increased blood pressure the evening of POD 2. She had pre- eclamptic labs done which were normal. She was started on Procardia 30mg. Blood pressures were labile. She was started on HCTZ due to moderate to severe swelling in legs and also would help blood pressures. The blood pressures did improve to normal on POD3 and 4. She did not have any hypertension symptoms. She had been tolerating regular diet on POD1. She had positive flatus and BM on POD2. She ambulated well. Had adequate pain control with oral medication. Was discharged to home on POD4. Time Spent with Patient Time attestation: Total time spent providing and/or coordinating discharge services: Exam Const: General: comfortable and no acute distress Eyes: General: appearance normal, both eyes and all related structures Resp: Effort & Inspection: normal respiratory effort GI: Other: Abd soft nondistended, uterine fundus -2 umb firm nontender, incision without erythema, drainage or induration Extrem: Other: 2+ edema bilat LE, nontender bilat Discharge Plan Discharge Attending physician on discharge: Dickson Doll Discharging Clinician: Dickson Doll Anticipated Discharge Date/Time: 06/08/20 09:59 Patient Disposition: Home, Self-Care Activity: may shower, no straining, may drive after 2 weeks and pelvic rest Diet: regular Discharge Instructions: Pelvic rest for 6 weeks. No driving for two weeks. May take over the counter Ibuprofen or Motrin 600mg every six hours as needed for pain. May take over the counter Tylenol 1-2 every 4 to 6 hours as needed. May take GasX over the counter. Recommend Miralax daily until normal bowel movements daily. May take over the counter Doculax stool softener as needed. Call for temperature >100.4, leg pain or redness, call for any incision drainage or redness, severe headache not relieved with Tylenol or Motrin. Call for white spots in vision or right upper abdominal pain. No lifting more than ten pounds. No straining. Take daily PNV. Take over the counter SloFe twice a day for one month. Patient Instructions: Antibiotic Form Stand Alone Forms: General Discharge Information Follow-up/Referrals: Dickson Doll MD [Physician] - 1 Week (Call office for appointment for Wed or .) Discharge Medications: New hydrocodone-acetaminophen 5-325 mg Tablet 1 tablet PO Q3H PRN (Reason: Pain, Moderate) Qty: 30 RF: 0 nifedipine [Procardia XL] 30 mg Tablet Extended Release 24hr 30 mg PO QAM Qty: 30 RF: 0 hydrochlorothiazide 25 mg Tablet 25 mg PO QAM Qty: 5 RF: 0 Continued One A Day Women's DHA 28 mg iron- 800 mcg combo pack PO RF: 0 cholecalciferol (vitamin D3) [Vitamin D3] 50 mcg (2,000 unit) Tablet 50 mcg PO DAILY RF: 0 Date of admission: 06/03/20 18:05 Pr
[2020-06-08] MEDS: IBUPROFEN 600 MG TABLET PO (10:03)
--- NOTE | 2020-06-08 11:26 | PC.NURSE ---
Patient viewed the discharge video Mother & Baby Care, The First Two Weeks . Patient was given the opportunity and encouraged to ask questions. Patient verbalized understanding of information shared and has been given the mother/baby guide for home reference.
[2020-06-10 08:42] VITALS: BP 138/72; PULSE 97; RESP 20; TEMP 36.9; O2SAT 100
== END 2020-06-08 12:28 | disposition home or self-care (01) | DRG 788 ==
LOC: ANHLDR 06-04 19:55 → ANHOB2 06-04 20:31
PROVIDERS: Admitting Provider Obstetrics & Gynecology; PCP Internal Medicine; Visit Provider Obstetrics & Gynecology
PROC: 10D00Z1 Extraction of Products of Conception, Low, Open Approach (ICD-10-PCS; CPT 59514; principal; 2020-06-04 16:00)
DX: O36.8330 Maternal care for abnormalities of the fetal heart rate or rhythm, third trimester, not applicable or unspecified (principal); Z37.0 Single live birth; Z3A.38 38 weeks gestation of pregnancy; O99.214 Obesity complicating childbirth; E66.01 Morbid (severe) obesity due to excess calories; O32.4XX0 Maternal care for high head at term, not applicable or unspecified; O35.8XX0 Maternal care for other (suspected) fetal abnormality and damage, not applicable or unspecified; Z87.59 Personal history of other complications of pregnancy, childbirth and the puerperium; O13.4 Gestational [pregnancy-induced] hypertension without significant proteinuria, complicating childbirth
CPT/HCPCS: 36415; 59025; 76815; 76819; 80053; 84550; 85025; 86592; 86850; 86900; 86901; A9270; J0131; J0690; J1885; J2274; J2370; J2405; J2590; J2795; J3010; J3105; J7120; J7121

== ENCOUNTER 2020-07-16 11:42 | Outpatient (CLI) | payer OTHER, SELFPAY ==
[2020-07-16 12:07] LABS: Hematocrit 36.5 % (37.0-47.0)
== END 2020-07-16 11:43 | disposition home or self-care (01) ==
PROVIDERS: PCP Internal Medicine; Visit Provider Obstetrics & Gynecology
DX: Z86.2 Personal history of diseases of the blood and blood-forming organs and certain disorders involving the immune mechanism (principal)
CPT/HCPCS: 36415; 85014; 85018

== ENCOUNTER 2023-03-15 15:03 | Outpatient (CLI) | payer BC, MEDICAID, SELFPAY ==
--- NOTE | ~2023-03-15 | US_ITS ---
US breast LT limited 03/15/2023 15:52 Indication: Palpable left breast abnormality Procedure: High-resolution Limited ultrasound of the left breast Comparison: No prior studies for comparison. Findings: At 6:00, 5 cm from the nipple in the subcutaneous tissues there is an oval hypoechoic circu mscribed mass with parallel orientation measuring 7 x 6 x 3 mm. No significant posterior features or internal vascularity. Impression: 1: Oval 7 mm hypoechoic subcutaneous mass of the left breast at 6:00, 5 cm from the nipple. This like ly represents a benign sebaceous cyst. BI-RADS CATEGORY 3-PROBABLY BENIGN FINDING RECOMMENDATION: Six-month follow-up left breast ultrasound recommended. Reviewed, dictated and finalized at location A. Impression: 1: Oval 7 mm hypoechoic subcutaneous mass of the left breast at 6:00, 5 cm from the nipple. This likely represents a benign sebaceous cyst. BI-RADS CATEGORY 3-PROBABLY BENIGN FINDING RECOMMENDATION: Six-month follow-up left breast ultrasound recommended.
== END 2023-03-15 15:04 | disposition home or self-care (01) ==
PROVIDERS: PCP Family Medicine; Visit Provider Obstetrics & Gynecology
DX: R92.8 Other abnormal and inconclusive findings on diagnostic imaging of breast (principal); N63.20 Unspecified lump in the left breast, unspecified quadrant
CPT/HCPCS: 76642

== ENCOUNTER → 2023-03-29 11:26 | Outpatient (REF) | payer BC, MEDICAID, SELFPAY | LOC: ANHLAB 11:26 | PROVIDERS: PCP Family Medicine; Visit Provider Surgery | DX: L72.0 Epidermal cyst (principal) | CPT/HCPCS: 88305 ==